=== PATIENT | male | born 1960 | race Caucasian/White ===

== ENCOUNTER 2017-09-13 12:39 | Emergency (ER) | payer SELFPAY ==
[2017-09-13 12:41] VITALS: BP 138/87; PULSE 92; RESP 16; TEMP 36.9; O2SAT 96; BMI 22.4
[2017-09-13 14:00] LABS: Anion Gap 10 (5-15); BUN 5 mg/dL (7-18); Calcium,Total 8.3 mg/dL (8.5-10.1); Chloride 89 mmol/L (98-107); Creatinine, Serum 0.83 mg/dL (0.70-1.30); EST Glomerular Filtration Rate 101 mL/min (>60); Est Glom Filt Rate - Afr Amer 122 mL/min (>60); Estimated Creatinine Clearance 93.11 ml/min; Glucose 82 mg/dL (74-106); Potassium 3.6 mmol/L (3.5-5.1); Sodium Level 124 mmol/L (136-145)
[2017-09-13 14:04] VITALS: BP 139/92; PULSE 74; RESP 18; O2SAT 98
--- NOTE | 2017-09-13 15:31 | ED.VISSUMM ---
- ER Visit Summary Date of Service: 09/13/17 Chief Complaint: Elevated blood pressure for 1-2 years History of Present Illness: The patient is a 57 M not seen a physician in 20 years presents because he had a high blood pressure reading at the pharmacy. He states his blood pressure was 200/95. Asked why he has not seen a doctor he told me I do not have insurance . He denies headache. He denies visual, ocular or auditory symptoms. No trouble with speech or swallowing. He denies chest pain or shortness of breath. He denies nausea vomiting. He denies any paresthesia, anesthesia moderates. He denies any problems with his balance. He does admit to smoking 1 pack per day and drinks 6-12 beers a day. Physical Examination: Blood pressure is 149/92. Vitals otherwise unremarkable. Head is atraumatic normocephalic. Pupils are equal round reactive. Extraocular muscles are intact. TMs are pearly white with landmarks noted. Nares patent with no drainage. Posterior pharynx without erythema or exudate. Uvula is midline. There is no dysphonia or dysphasia. Trachea is midline. There is no stridor with auscultation of the neck. Heart is regular without murmur, gallop or rub. S1 and S2 are normal. Lungs are clear to auscultation with good movement of air bilaterally. Patient is alert and oriented ?3. Motor is 5 over 5. Sensory is intact. DTRs are symmetric with no clonus or Babinski sign. Cranial 2 through 12 are intact. Cerebellar testing is normal. Test Results: BMP is remarkable for a sodium of 124 and chloride of 89. Emergency Department Course and Treatment: She has not seen a physician in 20 years and reports numerous elevated blood pressures over the last 2 years a BMP was obtained to assess his BUN and creatinine. Treatment Plan: Presume the hyponatremia is secondary to alcoholism. Since he does not have a physician he was referred to [facility]. Since he does not have health insurance or insurance to cover for medication he was prescribed lisinopril. Disposition: Charge to home with appropriate home-going instructions and follow-up at [facility] Impression: 1. Hypertension initial diagnosis begin treatment 2. Asymptomatic hyponatremia secondary to alcoholism This note was generated with [employer] software. It may contain incorrect words, spelling, and punctuation that were not noted in review of the chart prior to signing ED Disposition - Plan for ED Patient: Disposition: Home or Assisted Living Chief Complaint: Hypertension Instructions: ED Hyponatremia, ED Hypertension New Begin Tx Prescriptions: Lisinopril [Zestril] 10 mg PO DAILY #30 tab Referrals: Care Physician,No Primary [Primary Care Provider] - Susan Chua [NON-STAFF] - 1 Week
--- NOTE | 2017-09-13 15:37 | ED.DCSUM_ITS ---
- ER Visit Summary Date of Service: 09/13/17 Chief Complaint: Elevated blood pressure for 1-2 years History of Present Illness: The patient is a 57 M not seen a physician in 20 years presents because he had a high blood pressure reading at the pharmacy. He states his blood pressure was 200/95. Asked why he has not seen a doctor he told me I do not have insurance . He denies headache. He denies visual, ocular or auditory symptoms. No trouble with speech or swallowing. He denies chest pain or shortness of breath. He denies nausea vomiting. He denies any paresthesia, anesthesia moderates. He denies any problems with his balance. He does admit to smoking 1 pack per day and drinks 6-12 beers a day. Physical Examination: Blood pressure is 149/92. Vitals otherwise unremarkable. Head is atraumatic normocephalic. Pupils are equal round reactive. Extraocular muscles are intact. TMs are pearly white with landmarks noted. Nares patent with no drainage. Posterior pharynx without erythema or exudate. Uvula is midline. There is no dysphonia or dysphasia. Trachea is midline. There is no stridor with auscultation of the neck. Heart is regular without murmur, gallop or rub. S1 and S2 are normal. Lungs are clear to auscultation with good movement of air bilaterally. Patient is alert and oriented ?3. Motor is 5 over 5. Sensory is intact. DTRs are symmetric with no clonus or Babinski sign. Cranial 2 through 12 are intact. Cerebellar testing is normal. Test Results: BMP is remarkable for a sodium of 124 and chloride of 89. Emergency Department Course and Treatment: She has not seen a physician in 20 years and reports numerous elevated blood pressures over the last 2 years a BMP was obtained to assess his BUN and creatinine. Treatment Plan: Presume the hyponatremia is secondary to alcoholism. Since he does not have a physician he was referred to [facility]. Since he does not have health insurance or insurance to cover for medication he was prescribed lisinopril. Disposition: Charge to home with appropriate home-going instructions and follow- up at [facility] Impression: 1. Hypertension initial diagnosis begin treatment 2. Asymptomatic hyponatremia secondary to alcoholism This note was generated with [employer]fru[employer]ation software. It may contain incorrect words, spelling, and punctuation that were not noted in review of the chart prior to signing ED Disposition - Plan for ED Patient: Disposition: Home or Assisted Living Chief Complaint: Hypertension Instructions: ED Hyponatremia, ED Hypertension New Begin Tx Prescriptions: Lisinopril [Zestril] 10 mg PO DAILY #30 tab Referrals: Care Physician,No Primary [Primary Care Provider] - Susan Chua [NON-STAFF] - 1 Week
--- NOTE | 2017-09-13 16:03 | ED.RN ---
upon discharging pt, pt bp elevated to 182/99. this rn readjusted bp cuff and bp was 170/104. this rn spoke with dr. strong about pt bp. verbal order for 10 mg lisinopril po now. pt educated on home going prescriptions and discharge instructions. pt verbalizes understanding, and denies furhter questions. pt ambulatory home by self without difficulty.
[2017-09-13] MEDS: Lisinopril 10 MG Tablet PO (16:13)
[2017-09-13 16:14] VITALS: BP 170/104; PULSE 69; RESP 17; O2SAT 99
== END 2017-09-13 16:15 | disposition home or self-care (01) ==
PROVIDERS: Emergency Provider Emergency Medicine
DX: I10 Essential (primary) hypertension (principal); E87.1 Hypo-osmolality and hyponatremia; F10.20 Alcohol dependence, uncomplicated; F17.200 Nicotine dependence, unspecified, uncomplicated
CPT/HCPCS: 80048; 99283

== ENCOUNTER 2017-09-21 11:41 | Emergency (ER) | payer SELFPAY ==
[2017-09-21 11:42] VITALS: BP 157/106; PULSE 87; RESP 17; TEMP 36.8; O2SAT 99; BMI 20.7
--- NOTE | 2017-09-21 11:57 | ED.RN ---
PT TEARFUL WHEN SPEAKING TO MD D/T HIS SON DYING IN A MVA.
--- NOTE | 2017-09-21 12:01 | EKG12_ITS ---
Test Reason : CHEST PAIN Blood Pressure : / mmHG Vent. Rate : 078 BPM Atrial Rate : 078 BPM P-R Int : 188 ms QRS Dur : 122 ms QT Int : 374 ms P-R-T Axes : 074 062 076 degrees QTc Int : 426 ms Normal sinus rhythm Septal infarct , age undetermined Abnormal ECG Confirmed by SELAM PAYNE ([id number]), slot editor LULU FIGUEROA ([id number] on 09/25/2017 1:07:56 PM Referred By: SHERRIE Confirmed By:SELAM PAYNE
--- NOTE | 2017-09-21 12:05 | RAD_ITS ---
STUDY: X-RAY CHEST REASON FOR EXAM: Male, 57 years old. Chest pain and congestion. TECHNIQUE: Two AP portable views of the chest. COMPARISON: None. FINDINGS: The lungs are clear and expanded. Small nodular density projecting over the right lung base in one image is not apparent on the other, and likely an overlapping nipple shadow. There is no demonstrated pleural abnormality. Normal size heart. Normal mediastinum and enio. Normal visualized pulmonary arteries. Normal visualized aortic arch and descending thoracic aorta. Normal visualized thoracic spine. 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 There is no demonstrated abnormality of the visualized soft tissue structures of the upper abdomen. RAD/Chest 1 View (Portable) IMPRESSION: No acute cardiopulmonary disease. Electronically Signed: Otoniel Dominguez MD at 12:38 EST , Service support ,
[2017-09-21] MEDS: Aspirin 81 MG TAB.CHEW 324 MG PO (12:08)
[2017-09-21] MEDS: amLODIPine 5 MG Tablet PO (12:12)
[2017-09-21 12:13] VITALS: BP 165/99; PULSE 77; RESP 18; O2SAT 98
[2017-09-21 12:15] LABS: Absolute Lymphocyte Count 2.09 X10^3/ul (0.83-4.51); Absolute Neutrophil Count 4.6 X10^3/uL (2.0-7.7); Basophil# 0.02 X10^3/uL; Basophil% 0.3 % (0-1); Eosinophil# 0.04 X10^3/uL; Eosinophils% 0.5 % (0-5); Hematocrit 47.4 % (40-54); Hemoglobin 16.6 g/dl (13.0-16.5); Lymphocyte # 2.09 X10^3/ul (4.0); Lymphocyte % 27.5 % (19-41); Mean Corpuscular Hgb 31.9 pg (27.0-32.0); Mean Platelet Vol. 8.6 fl (6.2-12.0); Monocyte# 0.87 X10^3/uL; Monocyte% 11.4 % (0-10); Neutrophil # 4.56 X10^3/uL (2.7-7.7); Neutrophil % 59.9 % (47-70); Platelet Count 310 K/mm3 (150-450); Red Blood Count 5.21 M/mm3 (4.6-6.2); White Blood Count 7.6 K/mm3 (4.4-11.0)
[2017-09-21 12:16] LABS: POSITIVE COUNT NO; POSITIVE DIFFERENTIAL NO; POSITIVE MORPHOLOGY NO
[2017-09-21 12:28] LABS: Anion Gap 9 (5-15); BUN 6 mg/dL (7-18); BUN/Creat Ratio 7.9 RATIO (10-20); Calcium,Total 8.8 mg/dL (8.5-10.1); Chloride 92 mmol/L (98-107); Creatinine, Serum 0.76 mg/dL (0.70-1.30); EST Glomerular Filtration Rate 112 mL/min (>60); Est Glom Filt Rate - Afr Amer 135 mL/min (>60); Estimated Creatinine Clearance 99.76 ml/min; Glucose 88 mg/dL (74-106); Sodium Level 128 mmol/L (136-145)
--- NOTE | 2017-09-21 12:55 | ED.VISSUMM ---
- ER Visit Summary Date of Service: 09/21/17 Chief Complaint: Multiple complaints History of Present Illness: The patient is a 57 M who is actually from [place]. 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 He was seen in the emergency department last week with hypertension. 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 Patient comes in today stating that the [facility] cannot see him because he is an [id number] resident. Patient states that his blood pressure does not seem to be much better. He states that for the past year he has had some sinus congestion which causes pain in the left ear. He states that since being here he has had more purulent foul-smelling drainage from the nose. He notes a subjective fever. He is a long-term smoker. He mentions to the nurse that he has a centralized chest pain and does mention that this is been present for greater than 1 year. Physical Examination: Hypertension otherwise vital signs are stable Gen: Well-nourished well-developed Head: Normocephalic atraumatic Eyes: Perrl EOMI ENT: TMs clear bilateral turbinate edema is tenderness palpation over the left maxillary sinus moist mucous membranes Neck: Supple no lymphadenopathy no JVD nontender CVS: Regular rate rhythm no murmurs normal S1-S2 Respiratory: No distress clear to auscultation bilaterally chest nontender Abdomen: Soft nontender nondistended normal bowel sounds no masses Back: Nontender Extremity: Nontender no edema Skin: Normal color no rash Neuro: alert orientated ?3 CN II-XII intact normal strength sensation reflexes gait cerebellar Psych: Normal affect normal mood Test Results: KG shows a sinus rhythm at a rate of 78. CBC BMP troponin negative. Chest x-ray negative. Emergency Department Course and Treatment: Received a dose of amlodipine and his blood pressures responding. I am going to place him on amlodipine in addition to his lisinopril. Also place him on Augmentin for presumed sinusitis infection. I am also place him on Flonase given how long his nasal symptoms are present. Patient also notes that he has depression since his son in a car accident. He is to return to [place] and establish primary care. Does not have suicidal homicidal ideation. As I have no long-term follow-up with the patient I do not feel comfortable starting antidepressants at this time. Impression: 1. Hypertension 2. Sinusitis 3. Depression This note was generated with [employer] dictation software. It may contain incorrect words, spelling, and punctuation that were not noted in review of the chart prior to signing ED Disposition - Plan for ED Patient: Disposition: Home or Assisted Living Chief Complaint: Chest Pain Instructions: ED Sinusitis Abx Tx Prescriptions: Amlodipine Besylate [Norvasc] 5 mg PO DAILY #30 tab Fluticasone 0.05% [Flonase Nasal [place]] 2 spray NASAL DAILY #1 nasal.sry Amoxicillin/Potassium Clav [Augmentin 875-125 Tablet] 1 ea PO BID #20 tab Referrals: Care Physician,No Primary [Primary Care Provider] - Laura De La Vega MD [STAFF PHYSICIAN] - Additional Instructions: You need to establish primary care. He would be best for you to establish primary care back in [place]. He need to speak with them regarding your long-term hypertension, sinusitis, and depression.
--- NOTE | 2017-09-21 13:02 | ED.DCSUM_ITS ---
- ER Visit Summary Date of Service: 09/21/17 Chief Complaint: Multiple complaints History of Present Illness: The patient is a 57 M who is actually from [place]. 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 He was seen in the emergency department last week with hypertension. 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 Patient comes in today stating that the [facility] cannot see him because he is an [id number] resident. Patient states that his blood pressure does not seem to be much better. He states that for the past year he has had some sinus congestion which causes pain in the left ear. He states that since being here he has had more purulent foul-smelling drainage from the nose. He notes a subjective fever. He is a long-term smoker. He mentions to the nurse that he has a centralized chest pain and does mention that this is been present for greater than 1 year. Physical Examination: Hypertension otherwise vital signs are stable Gen: Well-nourished well-developed Head: Normocephalic atraumatic Eyes: Perrl EOMI ENT: TMs clear bilateral turbinate edema is tenderness palpation over the left maxillary sinus moist mucous membranes Neck: Supple no lymphadenopathy no JVD nontender CVS: Regular rate rhythm no murmurs normal S1-S2 Respiratory: No distress clear to auscultation bilaterally chest nontender Abdomen: Soft nontender nondistended normal bowel sounds no masses Back: Nontender Extremity: Nontender no edema Skin: Normal color no rash Neuro: alert orientated ?3 CN II-XII intact normal strength sensation reflexes gait cerebellar Psych: Normal affect normal mood Test Results: KG shows a sinus rhythm at a rate of 78. CBC BMP troponin negative. Chest x-ray negative. Emergency Department Course and Treatment: Received a dose of amlodipine and his blood pressures responding. I am going to place him on amlodipine in addition to his lisinopril. Also place him on Augmentin for presumed sinusitis infection. I am also place him on Flonase given how long his nasal symptoms are present. Patient also notes that he has depression since his son in a car accident. He is to return to [place] and establish primary care. Does not have suicidal homicidal ideation. As I have no long-term follow-up with the patient I do not feel comfortable starting antidepressants at this time. Impression: 1. Hypertension 2. Sinusitis 3. Depression This note was generated with [employer] dictation software. It may contain incorrect words, spelling, and punctuation that were not noted in review of the chart prior to signing ED Disposition - Plan for ED Patient: Disposition: Home or Assisted Living Chief Complaint: Chest Pain Instructions: ED Sinusitis Abx Tx Prescriptions: Amlodipine Besylate [Norvasc] 5 mg PO DAILY #30 tab Fluticasone 0.05% [Flonase Nasal [place]] 2 spray NASAL DAILY #1 nasal.sry Amoxicillin/Potassium Clav [Augmentin 875-125 Tablet] 1 ea PO BID #20 tab Referrals: Care Physician,No Primary [Primary Care Provider] - Laura De La Vega MD [STAFF PHYSICIAN] - Additional Instructions: You need to establish primary care. He would be best for you to establish primary care back in [place]. He need to speak with them regarding your long- term hypertension, sinusitis, and depression.
[2017-09-21 13:28] VITALS: BP 160/107; PULSE 71; RESP 16; O2SAT 96
== END 2017-09-21 13:29 | disposition home or self-care (01) ==
PROVIDERS: Emergency Provider Emergency Medicine
DX: J32.0 Chronic maxillary sinusitis (principal); I10 Essential (primary) hypertension; F32.9 Major depressive disorder, single episode, unspecified; F17.200 Nicotine dependence, unspecified, uncomplicated; Z79.899 Other long term (current) drug therapy
CPT/HCPCS: 71045; 80048; 84484; 85025; 93005; 99285; A4216